=== PATIENT | female | born 1995 | race Caucasian/White ===

== ENCOUNTER 2019-04-05 14:38 | Emergency (ER) | payer BC ==
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
[2019-04-05] MEDS ORDERED: Ketorolac 60 MG/2 ML SDV IM ONE (15:38)
== END 2019-04-05 15:52 | disposition home or self-care (01) ==
LOC: LL.ED 14:38
DX: S40.011A Contusion of right shoulder, initial encounter (principal); F41.8 Other specified anxiety disorders; R03.0 Elevated blood-pressure reading, without diagnosis of hypertension; Z71.6 Tobacco abuse counseling; X58.XXXA Exposure to other specified factors, initial encounter
CPT/HCPCS: 73030-RT; 96372; 99283-25; J1885

== ENCOUNTER 2020-04-05 12:44 | Emergency (ER) | payer SELFPAY ==
[2020-04-05 13:31] LABS: CHLORIDE,CL 101 mmol/L (98-107); SODIUM,NA 138 mmol/L (136-145)
--- NOTE | 2020-04-05 13:54 | EDM.PDOC ---
ED HPI GENERAL MEDICAL PROBLEM - General Chief Complaint: General Stated Complaint: SOB, Chest Pain Time Seen by Provider: 04/05/20 12:56 Source of Information: Reports: Patient History Limitations: Reports: No Limitations - History of Present Illness INITIAL COMMENTS - FREE TEXT/NARRATIVE: Pt presents to ER with SOB and chest pain Was at work when occurred Has hx/o palpitations and is followed in clinic for this Pain is in left chest and goes under left breast No trauma NO fever No cough Had COVID in 02/24 Onset: Gradual Duration: Day(s):, Intermittent Location: Reports: Chest under left breast Pain Score (Numeric/FACES): 3 - Related Data Allergies Allergy/AdvReac Type Severity Reaction Status Date / Time lamotrigine Allergy Rash Verified 04/05/20 13:05 Home Meds: Home Meds Aspirin/Sod Bicarb/Citric Acid [[place] Original] 1 tab PO ASDIRECTED PRN 04/05/19 [History] medroxyPROGESTERone [Depo-Provera Contraceptive] 150 mg IM ASDIRECTED 04/05/19 [History] FLUoxetine HCl [Prozac] 20 mg PO DAILY 04/05/20 [History] clonazePAM [Clonazepam] 1 mg PO ASDIRECTED PRN 04/05/20 [History] Past Medical History HEENT History: Reports: Impaired Vision Cardiovascular History: Reports: Arrhythmia, Other (See Below) Other Cardiovascular History: Nonspecific tachycardia in the past with previous Lopressor therapy. Gastrointestinal History: Reports: Other (See Below) Other Gastrointestinal History: Nonspecific chronic abdominal pain after oral intake with no workup to this point. 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 Neurological History: Reports: Migraines Psychiatric History: Reports: Anxiety, Depression, Psych Hospitalization(s), Suicide Attempt, Suicidal Ideation, Other (See Below) Other Psychiatric History: Suicidal attempt including gesture reaction with cutting with hospitalization in this facility on 02/25/09. Dermatologic History: Reports: Other (See Below) Other Dermatologic History: Acne vulgaris - Infectious Disease History Infectious Disease History: Reports: Chicken Pox - Past Surgical History HEENT Surgical History: Reports: None Social & Family History - Tobacco Use Tobacco Use Status *Q: Current Every Day Tobacco User Years of Tobacco use: 11 Packs/Tins Daily: 0.2 Second Hand Smoke Exposure: No - Caffeine Use Caffeine Use: Reports: None - Alcohol Use Days Per Week of Alcohol Use: 1 Number of Drinks Per Day: 6 Total Drinks Per Week: 6 - Recreational Drug Use Recreational Drug Use: No - Living Situation & Occupation Living situation: Reports: with Family (Daughter) 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) ED ROS GENERAL - Review of Systems Review Of Systems: See Below HEENT: Reports: No Symptoms Respiratory: Reports: No Symptoms Cardiovascular: Reports: Chest Pain GI/Abdominal: Reports: No Symptoms Neurological: Reports: No Symptoms Psychiatric: Reports: Anxiety ED EXAM, GENERAL - Physical Exam Exam: See Below Exam Limited By: No Limitations General Appearance: Alert, WD/WN, Mild Distress Throat/Mouth: Normal Oropharynx Neck: Supple Respiratory/Chest: Lungs Clear Cardiovascular: Regular Rate, Rhythm GI/Abdominal: Non-Tender Extremities: No Pedal Edema Course - Vital Signs Last Recorded V/S: Last Vital Signs Temp Pulse 132 H 04/05/20 12:45 Resp 22 H 04/05/20 12:45 BP 150/112 H 04/05/20 12:45 Pulse Ox 99 04/05/20 12:45 - Orders/Labs/Meds Orders: Active Orders 24 hr Category Date Time Status EKG Documentation Completion [RC] ASDIRECTED Care 04/05/20 12:53 Active Chest 1V Frontal [CR] Stat Exams 04/05/20 12:58 Taken Labs: Laboratory Tests 04/05/20 04/05/20 Range/Units 13:05 13:05 WBC 16.0 H (4.0-10.2) K/uL RBC 5.03 (3.77-5.09) M/uL Hgb 15.2 (11.7-15.5) g/dL Hct 44.3 (34.0-46.0) % MCV 88.1 (84.0-98.0) fL MCH 30.2 (28.2-33.3) pg MCHC 34.3 (31.7-36.0) g/dL RDW 13.1 (11.2-14.1) % Plt Count 316 (150-350) K/uL Neut % (Auto) 57.4 (45.0-80.0) % Lymph % (Auto) 23.0 (10.0-50.0) % [place] % (Auto) 5.4 (2.0-14.0) % Eos % (Auto) 14.0 H (0.0-5.0) % Baso % (Auto) 0.2 (0.0-2.0) % Neut # (Auto) 9.19 H (1.40-7.00) K/uL Lymph # (Auto) 3.68 H (0.50-3.50) K/uL [place] # (Auto) 0.86 (0.00-1.00) K/uL Eos # (Auto) 2.24 H (0.00-0.50) K/uL Baso # (Auto) 0.04 (0.00-0.20) K/uL Sodium 138 (136-145) mmol/L Potassium 3.4 L (3.5-5.1) mmol/L Chloride 101 (98-107) mmol/L Carbon Dioxide 25.9 (21.0-32.0) mmol/L BUN 19 H (7-18) mg/dL Creatinine 0.96 (0.51-1.17) mg/dL Est Cr Clr Drug Dosing 79.91 mL/min Estimated GFR (MDRD) > 60 mL/min Glucose 120 H (74-106) mg/dL Calcium 9.8 (8.5-10.1) mg/dL Total Bilirubin 0.3 (0.2-1.0) mg/dL AST 23 (15-37) U/L ALT 39 (12-78) U/L Alkaline Phosphatase 99 (46-116) IU/L Troponin I 0.000 (0.000-0.056) ng/mL Total Protein 7.8 (6.4-8.2) g/dL Albumin 4.3 (3.4-5.0) g/dL - Re-Assessments/Exams Free Text/Narrative Re-Assessment/Exam: 04/05/20 13:52 See lab EKG without acute changes CXR without infiltrate Troponin 0 Pt scheduled for Holtor monitor in near future Departure - Departure Time of Disposition: 14:00 Disposition: Home, Self-Care 01 Clinical Impression: Atypical chest pain - Discharge Information *PRESCRIPTION DRUG MONITORING PROGRAM REVIEWED*: Not Applicable *COPY OF PRESCRIPTION DRUG MONITORING REPORT IN PATIENT KIMBERLEE: Not Applicable Instructions: Nonspecific Chest Pain, Adult, [id number] Referrals: Josh Whaley PA-C [Primary Care Provider] - Additional Instructions: Follow up in clinic Pt to be off work today Please excuse Sepsis Event Note (ED) - Evaluation Sepsis Screening Result: No Definite Risk - Focused Exam Vital Signs: Vital Signs Pulse Resp BP Pulse Ox 04/05/20 12:45 132 H 22 H 150/112 H 99 - My Orders Last 24 Hours: My Active Orders 04/05/20 12:53 EKG Documentation Completion [RC] ASDIRECTED 04/05/20 12:58 Chest 1V Frontal [CR] Stat - Assessment/Plan Last 24 Hours: My Active Orders 04/05/20 12:53 EKG Documentation Completion [RC] ASDIRECTED 04/05/20 12:58 Chest 1V Frontal [CR] Stat
== END 2020-04-05 14:07 | disposition home or self-care (01) ==
LOC: LL.ED 12:44
DX: R07.89 Other chest pain (principal); R06.02 Shortness of breath; F41.9 Anxiety disorder, unspecified; F32.9 Major depressive disorder, single episode, unspecified; F17.210 Nicotine dependence, cigarettes, uncomplicated; Z88.8 Allergy status to other drugs, medicaments and biological substances; Z79.899 Other long term (current) drug therapy
CPT/HCPCS: 36415; 71045; 80053; 84484; 85025; 93005; 99285-25

== ENCOUNTER 2022-08-14 19:12 | Emergency (ER) | payer BC ==
[2022-08-14 19:41] LABS: BASOPHILS ABSOLUTE AUTO 0.02 K/uL (0.00-0.20); BASOPHILS PERCENT AUTO 0.2 % (0.0-2.0); EOSINOPHILS ABSOLUTE AUTO 0.16 K/uL (0.00-0.50); EOSINOPHILS PERCENT AUTO 1.5 % (0.0-5.0); HEMATOCRIT 40.9 % (34.0-46.0); HEMOGLOBIN 13.9 g/dL (11.7-15.5); LYMPHOCYTES ABSOLUTE AUTO 3.17 K/uL (0.50-3.50); LYMPHOCYTES PERCENT AUTO 30.2 % (10.0-50.0); MEAN CORPUSCULAR VOLUME 85.4 fL (84.0-98.0); MONOCYTES PERCENT AUTO 6.7 % (2.0-14.0); NEUTROPHILS ABSOLUTE AUTO 6.44 K/uL (1.40-7.00); NEUTROPHILS PERCENT AUTO 61.4 % (45.0-80.0); PLATELET COUNT,PLT 343 K/uL (150-350); RED BLOOD CELL COUNT 4.79 M/uL (3.77-5.09); RED CELL DISTRIBUTION WIDTH 13.5 % (11.2-14.1); WHITE BLOOD CELL COUNT,WBC 10.5 K/uL (4.0-10.2)
[2022-08-14 19:46] LABS: APPEARANCE,URINE TURBID; BILIRUBIN,URINE NEGATIVE (NEGATIVE); COLOR,URINE LIGHT YELLOW; GLUCOSE,URINE NEGATIVE (NEGATIVE); KETONES,URINE NEGATIVE (NEGATIVE); LEUKOCYTE ESTERASE,URINE SMALL (NEGATIVE); NITRITE,URINE NEGATIVE (NEGATIVE); OCCULT BLOOD,URINE LARGE (NEGATIVE); PROTEIN,URINE NEGATIVE (NEGATIVE); UROBILINOGEN,URINE 0.2 E.U./dL (0.2-1.0)
[2022-08-14 19:54] LABS: ALBUMIN 3.6 g/dL (3.4-5.0); ANION GAP 10.4 meq/L (7-15); BILIRUBIN TOTAL 0.2 mg/dL (0.2-1.0); CALCIUM 8.6 mg/dL (8.5-10.1); CARBON DIOXIDE,CO2 28.6 mmol/L (21.0-32.0); CREATININE 1.07 mg/dL (0.51-1.17); EST CRCL DRUG DOSING (CG) 69.81 mL/min; POTASSIUM,K 3.5 mmol/L (3.5-5.1); PROTEIN TOTAL,TP 6.8 g/dL (6.4-8.2)
[2022-08-14 19:58] LABS: BACTERIA,URINE NOT SEEN /HPF (NONE TO FEW); RBC,URINE 30-40 /HPF
[2022-08-14] MEDS ORDERED: Phenazopyridine 95 MG Tab PO ONE (20:18)
[2022-08-14] MEDS ORDERED: Nitrofurantoin Monohydrate/Macrocrystalline 100 MG Cap PO ONE (20:18)
[2022-08-14] MEDS ORDERED: Ondansetron 4 MG Tab.DIS PO ONE (20:19)
[2022-08-14] MEDS ORDERED: Ketorolac 10 MG Tab PO ONE (20:19)
[2022-08-14] MEDS ORDERED: Acetaminophen 325 MG Tab PO ONE (20:19)
[2022-08-14] MEDS ORDERED: Take Home: traMADol 50 MG, 4 Tab Pack PO ONE (20:19)
[2022-08-14] MEDS ORDERED: cefTRIAXone 1 GM Vial IM ONE (20:30)
[2022-08-14] MEDS ORDERED: Lidocaine 1% 5 ML VIAL ONE (20:36)
[2022-08-15] MEDS ORDERED: Phenazopyridine 95 MG Tab PO ONE (20:18)
== END 2022-08-14 21:00 | disposition home or self-care (01) ==
LOC: LL.ED 19:12
DX: N39.0 Urinary tract infection, site not specified (principal); F17.210 Nicotine dependence, cigarettes, uncomplicated; Z88.8 Allergy status to other drugs, medicaments and biological substances; Z79.899 Other long term (current) drug therapy
CPT/HCPCS: 36415; 80053; 81001; 81025; 85025; 87086; 96372; 99283; 99284; A9270-GY; J0696; J3490

== ENCOUNTER 2025-01-04 10:47 | Emergency (ER) | payer MEDICAID ==
[2025-01-04 11:26] LABS: BASOPHILS ABSOLUTE AUTO 0.04 K/uL (0.00-0.20); BASOPHILS PERCENT AUTO 0.4 % (0.0-2.0); EOSINOPHILS ABSOLUTE AUTO 0.11 K/uL (0.00-0.50); EOSINOPHILS PERCENT AUTO 1.1 % (0.0-5.0); IMMATURE GRAN ABSOLUTE AUTO 0.02 10^3/uL (0.00-0.04); IMMATURE GRAN PERCENT AUTO 0.2 % (0.0-0.4); LYMPHOCYTES ABSOLUTE AUTO 2.61 K/uL (0.50-3.50); LYMPHOCYTES PERCENT AUTO 27.0 % (10.0-50.0); MONOCYTES ABSOLUTE AUTO 0.43 K/uL (0.00-1.00); MONOCYTES PERCENT AUTO 4.5 % (2.0-14.0); NEUTROPHILS ABSOLUTE AUTO 6.44 K/uL (1.40-7.00); NEUTROPHILS PERCENT AUTO 66.8 % (45.0-80.0); PLATELET COUNT,PLT 273 K/uL (150-350); RED BLOOD CELL COUNT 4.86 M/uL (3.77-5.09); RED CELL DISTRIBUTION WIDTH 11.7 % (11.2-14.1); WHITE BLOOD CELL COUNT,WBC 9.7 K/uL (4.0-10.2)
[2025-01-04 11:31] LABS: AMPHETAMINES SCREEN, URINE NEGATIVE (NEGATIVE); COCAINE METABOLITES,URINE NEGATIVE (NEGATIVE); EDDP,URINE SCREEN NEGATIVE (NEGATIVE); METHAMPHETAMINES SCREEN, URINE NEGATIVE (NEGATIVE); TCA SCREEN,URINE NEGATIVE (NEGATIVE); THC SCREEN,URINE 50 NG/ML NEGATIVE (NEGATIVE)
[2025-01-04 11:32] LABS: BUPRENORPHINE SCREEN,URINE NEGATIVE (NEGATIVE); OXYCODONE SCREEN,URINE NEGATIVE (NEGATIVE)
[2025-01-04 11:55] LABS: ALANINE AMINOTRANSFERASE,ALT 27 U/L (12-78); ASPARTATE AMNIOTRANSFERASE,AST 18 U/L (15-37); BILIRUBIN TOTAL 0.5 mg/dL (0.2-1.0); BLOOD UREA NITROGEN,BUN 9 mg/dL (7-18); CARBON DIOXIDE,CO2 30.3 mmol/L (21.0-32.0); CHLORIDE,CL 106 mmol/L (98-107); CREATININE 1.06 mg/dL (0.51-1.17); ETHANOL BLOOD MEDICAL 0.002 g/dL (0.000-0.080); GLUCOSE RANDOM 98 mg/dL (70-99); PHOSPHORUS 3.5 mg/dL (2.6-4.7); POTASSIUM,K 4.1 mmol/L (3.5-5.1); PROTEIN TOTAL,TP 7.5 g/dL (6.4-8.2); SODIUM,NA 144 mmol/L (136-145); TSH ULTRASENSITIVE 1.506 mIU/mL (0.358-3.740)
[2025-01-04 11:56] LABS: ESTIMATED GFR 72 mL/min (>=60)
== END 2025-01-04 13:10 | disposition home or self-care (01) ==
LOC: LL.ED 10:47
DX: F32.A Depression, unspecified (principal); Z88.8 Allergy status to other drugs, medicaments and biological substances; Z79.899 Other long term (current) drug therapy
CPT/HCPCS: 36415; 80053; 80143; 80305-QW; 80307; 81025; 84100; 84443; 85025; 99284; A9270-GY